=== PATIENT | male | born 1940 | race Caucasian/White ===

== ENCOUNTER 2016-05-23 16:41 | Emergency (ER) | payer BC, MEDICAID ==
[~2016-05-23] VITALS: Wt 113.6 kg
[2016-05-23] MEDS ORDERED: SOD CHLORIDE 0.9% 1,000 ML IV STA (19:43)
[2016-05-23 20:16] LABS: BASOPHILS % 0.4 % (0.0-2.0); EOSINOPHILS # 0.2 10^3/ul (0.0-0.5); EOSINOPHILS % 2.1 % (0.0-7.0); HEMATOCRIT 41.1 % (42.0-52.0); HEMOGLOBIN 13.7 g/dl (14.0-18.0); LYMPHOCYTES # 0.7 10^3/ul (0.8-2.9); LYMPHOCYTES % 7.9 % (15.0-51.0); MEAN CORPUSCULAR HEMOGLOBIN 28.6 pg (29.0-33.0); MEAN CORPUSCULAR HGB CONC 33.3 g/dl (32.0-37.0); MEAN CORPUSCULAR VOLUME 85.9 fl (82.0-101.0); MEAN PLATELET VOLUME 7.5 fl (7.4-10.4); MONOCYTE # 1.1 10^3/ul (0.3-0.9); MONOCYTES % 12.2 % (0.0-11.0); NEUTROPHIL # 6.7 10^3/ul (1.6-7.5); NEUTROPHILS % 77.4 % (39.0-77.0); PLATELET COUNT 264 10^3/UL (140-440); RED BLOOD COUNT 4.78 10^6/ul (4.70-6.10); RED CELL DISTRIBUTION WIDTH 16.2 % (11.5-14.5); UNCORRECTED WBC 8.7 10^3/ul (4.8-10.8); WHITE BLOOD COUNT 8.7 10^3/ul (4.8-10.8)
[2016-05-23 20:20] LABS: CONDITION 1; LH ANALYZER COMMENTS 1
[2016-05-23 20:21] LABS: ALBUMIN 4.5 g/dl (3.3-4.9); CHLORIDE 99 mmol/L (97-110)
[2016-05-23 20:22] LABS: INR 1.08; PARTIAL THROMBOPLASTIN TIME 28.3 Sec (25.0-35.0); POTASSIUM 4.1 mmol/L (3.5-5.1); PT RATIO 1.1; SODIUM 142 mmol/L (135-144)
[2016-05-23 20:24] LABS: ALBUMIN/GLOBULIN RATIO 1.36; ALKALINE PHOSPHATASE 96 IU/L (42-121); ANION GAP 18 (8-16); ASPARTATE AMINO TRANSFERASE 29 IU/L (15-46); BILIRUBIN,INDIRECT 0.6 mg/dl (0-1.1); BILIRUBIN,TOTAL 0.6 mg/dl (0.2-1.3); BLOOD UREA NITROGEN 6 mg/dl (7-20); CARBON DIOXIDE 29 mmol/L (21-31); CREATININE 0.74 mg/dl (0.61-1.24); TOTAL PROTEIN 7.8 g/dl (6.1-8.1)
[2016-05-23 20:25] LABS: ALANINE AMINOTRANSFERASE 35 IU/L (13-69); CALCIUM 10.1 mg/dl (8.4-10.2); CREATINE KINASE 50 IU/L (23-200); GLUCOSE 127 mg/dl (70-220)
[2016-05-23 20:34] LABS: B-TYPE NATRIURETIC PEPTIDE 799 PG/ML (0-125)
--- NOTE | 2016-05-23 20:42 | RADRPT ---
PROCEDURE: XR Chest. CLINICAL INDICATION: Chest pain. TECHNIQUE: Single frontal chest x-ray. COMPARISON: None. FINDINGS: There postop of changes lower cervical spine with an anterior fusion plate. There are multiple righ t-sided cervical inlet surgical clips, most commonly related to thyroid surgery. The heart is mildly enlarged. Pulmonary vessels are top normal caliber. There is minimal bibasilar atelectasis. There is no pleural effusion. There is no pneumothorax. The osseous structures are unremarkable. IMPRESSION: Cardiomegaly. Pulmonary vessels top normal caliber. Minimal bibasilar atelectasis. RPTAT: HMVK .Yoseph Pritchett MD, MD Date Time Electronically viewed and signed by .Yoseph Pritchett MD, on 05/23/2016 20:41 .K/
[2016-05-23 20:50] LABS: ADD UMIC YES; URINE BILIRUBIN (Dip) NEGATIVE (NEGATIVE); URINE BLOOD (Dip) NEGATIVE (NEGATIVE); URINE COLOR LT. YELLOW (YELLOW); URINE GLUCOSE (Dip) NEGATIVE (NEGATIVE); URINE KETONES (Dip) NEGATIVE (NEGATIVE); URINE LEUKOCYTE ESTERASE (Dip) NEGATIVE (NEGATIVE); URINE NITRITE (Dip) NEGATIVE (NEGATIVE); URINE TOTAL PROTEIN (Dip) 1+ (NEGATIVE); URINE UROBILINOGEN (Dip) 0.2 E.U./dL (0.1-1.0)
[2016-05-23 20:57] LABS: TROPONIN-I < 0.012 ng/ml (0.00-0.12)
[2016-05-23 21:04] LABS: SPERM,URINE MANY; URINE RBCS 0-2 /HPF (0)
--- NOTE | 2016-05-23 21:11 | ERD ---
ER Documentation Chief Complaint Date/Time DATE: 05/23/16 TIME: 21:09 Chief Complaint bib ems c/o sob, cough, bodyaches HPI This is a 75-year-old male was brought in by ambulance for a cough, body aches, generalized weakness and 1 day episode of diarrhea. This patient does state he is on Flagyl and ciprofloxacin and is being treated for diverticulitis at this time. He states that he was feeling generally weak and came to the ER for evaluation. He denies any active chest pain at this time. ROS All systems reviewed and are negative except as per history of present illness. Allergies Allergies: Coded Allergies: No Known Allergy (Unverified , 05/23/16) PMhx/Soc History of Surgery: Yes (CARDIAC SX, STENT PLACEMENT, APPY) Anesthesia Reaction: No Hx Neurological Disorder: No Hx Respiratory Disorders: No Hx Cardiac Disorders: Yes (HTN, HYPERLIPIDEMIA) Hx Psychiatric Problems: Yes (ANXIETY) Hx Miscellaneous Medical Probl: Yes (DM ) Hx Alcohol Use: No Hx Substance Use: No Hx Tobacco Use: No Smoking Status: Never smoker Physical Exam Vitals Vital Signs Date Time Temp Pulse Resp B/P Pulse Ox O2 Delivery O2 Flow Rate FiO2 05/23/16 19:45 99.5 85 24 169/86 97 Room Air 05/23/16 18:51 101 24 188/84 99 Room Air 05/23/16 17:08 99.9 94 20 206/91 98 Physical Exam INITIAL VITAL SIGNS: Reviewed by me GENERAL: The patient is well developed and appropriate for usual state of health in no apparent distress HEENT: Dry mucous membranes, pupils equal, round, and reactive to light. EOMI. There is no scleral icterus. NECK: C-spine is soft and supple, there is no meningismus. There is no cervical lymphadenopathy. LUNGS: Clear to auscultation bilaterally. There are no rales, wheezes or rhonchi. HEART: Regular rate and rhythm, no murmurs, clicks, rubs or gallops. ABDOMEN: Soft, non-tender, non-distended. There are bowel sounds in all four quadrants. No rebound or guarding. EXTREMITIES: There is no peripheral cyanosis or edema. No focal swelling or erythema. NEUROLOGICAL: The patient moves all four extremities with 5/5 strength. Cranial nerves II - XII are intact. Normal gait. Alert and oriented SKIN: There is no apparent rash or petechiae. HEME/LYMPHATIC: There is no evidence of excessive bruising or lymphedema. PSYCHIATRIC: The patient does not appear anxious or depressed. Result Diagram: 05/23/16193705/23/161937 Results 24 hrs Laboratory Tests Test 05/23/16 19:38 05/23/16 20:31 Activated Partial Thromboplast Time 28.3Sec Alanine Aminotransferase (ALT/SGPT) 35IU/L Albumin 4.5g/dl Albumin/Globulin Ratio 1.36 Alkaline Phosphatase 96IU/L Anion Gap 18 Aspartate Amino Transf (AST/SGOT) 29IU/L B-Type Natriuretic Peptide 799PG/ML Basophils # 0.010^3/ul Basophils % 0.4% Blood Morphology Comment Blood Urea Nitrogen 6mg/dl Calcium Level 10.1mg/dl Carbon Dioxide Level 29mmol/L Chloride Level 99mmol/L Creatine Kinase 50IU/L Creatinine 0.74mg/dl Direct Bilirubin 0.00mg/dl Eosinophils # 0.210^3/ul Eosinophils % 2.1% Globulin 3.30g/dl Glucose Level 127mg/dl Hematocrit 41.1% Hemoglobin 13.7g/dl INR International Normalized Ratio 1.08 Indirect Bilirubin 0.6mg/dl Lymphocytes # 0.710^3/ul Lymphocytes % 7.9% Mean Corpuscular Hemoglobin 28.6pg Mean Corpuscular Hemoglobin Concent 33.3g/dl Mean Corpuscular Volume 85.9fl Mean Platelet Volume 7.5fl Monocytes # 1.110^3/ul Monocytes % 12.2% Neutrophils # 6.710^3/ul Neutrophils % 77.4% Nucleated Red Blood Cells # 0.010^3/ul Nucleated Red Blood Cells % 0.0/100WBC Platelet Count 14549^3/UL Potassium Level 4.1mmol/L Prothrombin Time 14.0Sec Prothrombin Time Ratio 1.1 Red Blood Count 4.7810^6/ul Red Cell Distribution Width 16.2% Sodium Level 142mmol/L Total Bilirubin 0.6mg/dl Total Protein 7.8g/dl Troponin I < 0.012ng/ml White Blood Count 8.710^3/ul Urine Bilirubin NEGATIVE Urine Clarity CLEAR Urine Color LT. YELLOW Urine Glucose NEGATIVE% Urine Hemoglobin NEGATIVE Urine Ketones NEGATIVE Urine Leukocyte Esterase NEGATIVE Urine Microscopic RBC 0-2/HPF Urine Microscopic WBC 0-2/HPF Urine Nitrite NEGATIVE Urine Specific [place] 1.020 Urine Sperm MANY Urine Total Protein 1+ Urine Urobilinogen 0.2 E.U./dL Urine pH 7.5 Current Medications Medications (Trade) Dose Ordered Sig/Otto Route PRN Reason Start Time Stop Time Status Last Admin Dose Admin Sodium Chloride (NS) 1,000 ml @ 1,000 mls/hr Q1H STAT IV 05/23/16 19:43 05/23/16 20:42 DC 05/23/16 20:00 Procedures/MDM EKG: Rate/Rhythm: [Normal Sinus Rhythm] QRS, ST, T-waves: [No changes consistent w/ acute ischemia] Impression: [No evidence of ischemia or arrhythmia] Chest X-ray 1V Interpreted by me: Soft Tissue: No acute abnormalities Bones: No acute abnormalities Mediastinum/Cardiac Silhouette/Lungs: [No acute abnormalities] This 75-year-old male presents to the ER for evaluation of generalized weakness and body aches. This patient had lab work done including a troponin which is normal, EKG is nonischemic, chest x-ray shows mild pulmonary vascular congestion. There is no leukocytosis, electrolytes are within normal limits and he was given 1 L of fluid. When I reevaluated him he states is feeling much better at this time and will be discharged home with instructions to stay hydrated. I do feel that his symptoms could be due to mild dehydration. Departure Diagnosis: Primary Impression: Mild dehydration Additional Impressions: Normocytic anemia Generalized weakness Condition: Stable GARFIELD COPELAND DO May 23, 2016 21:11
[2016-05-23] MEDS ORDERED: CLOP75TA4 PO (21:13)
[2016-05-23] MEDS ORDERED: RANO500T2 PO (21:14)
[2016-05-23] MEDS ORDERED: LAMO100T PO (21:14)
[2016-05-23] MEDS ORDERED: AMLO-147 PO (21:15)
[2016-05-23] MEDS ORDERED: GABA-526 PO (21:17)
[2016-05-23] MEDS ORDERED: MTF1000T PO (21:18)
[2016-05-23] MEDS ORDERED: BUSP10TA2 PO (21:20)
[2016-05-23] MEDS ORDERED: ISOS60TA PO (21:21)
[2016-05-23] MEDS ORDERED: METO-407 PO (21:21)
[2016-05-23] MEDS ORDERED: ASPI325T4 PO (21:24)
[2016-05-23] MEDS ORDERED: HYDR25CA PO (21:25)
[2016-05-23] MEDS ORDERED: METO-448 PO (21:28)
[2016-05-23] MEDS ORDERED: ATOR40TA68 PO (21:29)
[2016-05-23 21:30] VITALS: BP 160/79; PULSE 80; RESP 24; TEMP 98.3
[2016-05-23] MEDS ORDERED: LISI20TA11 PO (21:31)
[2016-05-23] MEDS ORDERED: QUET200T23 PO (21:32)
[2016-05-23] MEDS ORDERED: BUPR1FIL5 SL (21:35)
[2016-05-23] MEDS ORDERED: NIT4 SL (21:35)
[2016-05-23] MEDS ORDERED: BUDE6HFA INHALATION (21:36)
[2016-05-23] MEDS ORDERED: ALBU2.5V3 NEB (21:37)
[2016-05-23] MEDS ORDERED: ALBU90AE INHALATION (21:39)
== END 2016-05-23 22:01 | disposition home or self-care (01) ==
LOC: E/R 16:41
DX: E86.0 Dehydration (principal); R53.1 Weakness; E11.9 Type 2 diabetes mellitus without complications; I10 Essential (primary) hypertension; D64.9 Anemia, unspecified; Z95.5 Presence of coronary angioplasty implant and graft
CPT/HCPCS: 36415; 71010; 80053; 81001; 82550; 82553; 83880; 84484; 85025; 85610; 85730; 93005; 99285; J7030; 81003

== ENCOUNTER 2017-08-13 22:16 | Emergency (ER) | END 2017-08-14 06:30 | disposition home or self-care (01) ==

== ENCOUNTER 2018-04-16 16:02 | Observation (INO) | END 2018-04-17 14:25 | disposition home or self-care (01) ==

== ENCOUNTER 2018-06-25 10:33 | Emergency (ER) | payer OTHER ==
[~2018-06-25] VITALS: Ht 182.9 cm; Wt 113.6 kg
[~2018-06-25 10:33] MED LIST: ALBU2.5V3 NEB; AMLO-147 PO; ATOR-2 PO; BUDE6HFA INHALATION; BUPR1FIL5 SL; BUSP15TA3 PO; CITA10TA5 PO; CLON-379 PO; CLOP75TA19 PO; GABA-526 PO; ISOS60TA PO; LAMO100T PO; METF500T24 PO; METO-407 PO; NITR0.4T39 SL; QUET200T PO
[2018-06-25 11:02] VITALS: Ht 182.9 cm; Wt 113.6 kg
--- NOTE | 2018-06-25 11:14 | ERD ---
ER Documentation Chief Complaint Chief Complaint sent from clinic for abnormal k+ level, no other complaints HPI This is a very pleasant 77-year-old male with a history of type 2 diabetes mellitus bipolar disorder coronary artery disease hypertension. He was diagnosed with diabetes at the age of 75. The patient is on metformin. The patient was sent to [facility] today from [facility] after he was seen and evaluated for routine checkup. The patient had ancillary laboratory work that had been performed in the office. The patient's BUN was 31 and creatinine was 1.35. The patient's potassium was 6.2 mmol/L. Again this was taken today at 10 AM, an hour prior to arrival. Therefore the patient was instructed to immediately come to the emergency department to be further evaluated. The patient states he has had no frequency urgency or dysuria. He denies any hematuria. He denies any flank pain. He states he is never had any history of hyperkalemia or renal failure. He has no chest pain. He has no shortness of breath. He has no myalgias and no recent fever shaking or chills. The patient also states that he has been undergoing a significant amount of stress as he is undergoing a grief reaction as he lost his of several years 1 week prior to arrival. He stated he has not been eating or drinking as much as he had a decrease in appetite. He feels very dehydrated. He however denies any suicidal homicidal thoughts or ideations. He has a 24-hour caregiver who l enrike with him and helps him to attend to his activities of daily living. ROS All systems reviewed and are negative except as per history of present illness. Medications Home Meds Reported Medications Metformin Hcl* (Metformin Hcl* ER) 1,000 Mg Tab.er.24, 1000 MG PO DAILY, #30 TAB 06/25/18 Hydroxyzine Pamoate* (Vistaril*) 25 Mg Capsule, 25 MG PO Q8, CAP 06/25/18 Budesonide-Formoterol Fumarate* (Symbicort*) 160-4.5 Hfa.aer.ad, 2 PUFF INHALATION BID, #1 EACH 06/25/18 Tiotropium [place]* (Spiriva*) 18 Mcg Cap.w.dev, 1 CAP INHALATION DAILY, #30 CAP 06/25/18 Ranolazine* (Ranexa*) 500 Mg Tab.sr.12h, 500 MG PO Q12, TAB 06/25/18 Albuterol Sulfate* (Proair HFA*) 8.5 Gm Hfa.aer.ad, 2 PUFF INH Q6H PRN for WHEEZING AND SOB, #1 INHALER 06/25/18 Lisinopril* (Lisinopril*) 20 Mg Tablet, 20 MG PO BID, #30 TAB 06/25/18 Gabapentin* (Gabapentin*) 400 Mg Capsule, 1200 MG PO QAM, #270 CAP 06/25/18 Clonidine Hcl* (Clonidine Hcl*) 0.2 Mg Tablet, 0.2 MG PO DAILY, TAB 06/25/18 Atorvastatin* (Atorvastatin*) 40 Mg Tablet, 40 MG PO QHS, #30 TAB 06/25/18 Spironolactone* (Aldactone*) 25 Mg Tablet, 25 MG PO DAILY, #30 TAB 06/25/18 Metformin Hcl* (Metformin Hcl*) 500 Mg Tablet, 500 MG PO BID, #60 TAB 08/13/17 Citalopram Hydrobromide* (Citalopram Hydrobromide*) 10 Mg Tablet, 10 MG PO QHS, #30 TAB 08/13/17 Buspirone Hcl* (Buspirone Hcl*) 15 Mg Tablet, 60 MG PO QAM, TAB 08/13/17 Albuterol Sulfate* (Albuterol Sulfate* Neb) 0.083%-3 Ml Neb, 2.5 MG NEB Q3H PRN for WHEEZING AND SOB, #30 VIAL 05/23/16 Nitroglycerin* (Nitrostat*) 0.4 Mg Tab.subl, 0.4 MG SL Q5MIN PRN for CHEST PAIN, BOTTLE 05/23/16 Buprenorphine Hcl-Naloxone Hcl (Suboxone SL) 4-1 Mg Film, 2 FILM SL DAILY, FILM 05/23/16 Quetiapine Fumarate* (Seroquel*) 200 Mg Tablet, 200 MG PO HS, #30 TAB 05/23/16 Metoprolol Tartrate* (Lopressor*) 100 Mg Tablet, 100 MG PO BID, #60 TAB 05/23/16 Isosorbide Mononitrate* (Isosorbide Mononitrate*) 60 Mg Tab.er.24h, 60 MG PO QAM, TAB 05/23/16 Amlodipine Besylate* (Amlodipine Besylate*) 10 Mg Tablet, 10 MG PO QAM, #30 TAB 05/23/16 Lamotrigine* (Lamotrigine*) 100 Mg Tablet, 100 MG PO BID, TAB 05/23/16 Discontinued Reported Medications Gabapentin* (Gabapentin*) 600 Mg Tablet, 600 MG PO TID, #90 TAB 08/13/17 Atorvastatin* (Atorvastatin*) 80 Mg Tablet, 80 MG PO QHS, #30 TAB 08/13/17 Clonidine Hcl* (Clonidine Hcl*) 0.1 Mg Tab, 0.1 MG PO DAILY PRN for HTN, TAB 08/13/17 Budesonide-Formoterol Fumarate* (Symbicort*) 160-4.5 Hfa.aer.ad, 2 PUFF INHALATION BID, #1 EACH 05/23/16 Clopidogrel Bisulfate* (Clopidogrel Bisulfate*) 75 Mg Tablet, 75 MG PO DAILY, #30 TAB 05/23/16 Allergies Allergies: Coded Allergies: No Known Allergy (Unverified , 08/13/17) PMhx/Soc History of Surgery: Yes (B knee sx, heart sx, B shoulder sx, Appendectomy,stent placement) Anesthesia Reaction: No Hx Neurological Disorder: No Hx Respiratory Disorders: No Hx Cardiac Disorders: Yes (HTN, HLD, ) Hx Psychiatric Problems: Yes (Anxiety) Hx Miscellaneous Medical Probl: No Hx Alcohol Use: No Hx Substance Use: No Hx Tobacco Use: No Physical Exam Vitals Vital Signs Date Temp Pulse Resp B/P (MAP) Pulse Ox O2 O2 Flow FiO2 Time Delivery Rate 06/25/18 65 20 99 21 13:19 06/25/18 65 20 139/68 99 Room Air 13:06 (91) 06/25/18 98.7 69 18 133/64 97 11:02 (87) Physical Exam Constitutional:Well-developed. Well-nourished. HEENT:Normocephalic. Atraumatic.Pupils were equal round reactive to light. Dry mucous membranes.No tonsillar exudates. Neck: No nuchal rigidity. No lymphadenopathy. No posterior cervical spine tenderness or step-offs. Respiratory: Not using accessory muscles of respiration.Lungs were clear to auscultation bilaterally. No rhonchi. No rales. No wheezing. Cardiovascular: Regular rate regular rhythm.No murmurs. No rubs were appreciated.S1, S2 normal. Distal pulses are palpable 2+ bilaterally. GI: Abdomen was obese exam is limited due to body habitus. Nontender. Non Distended. No pulsatile abdominal masses or bruits. No rebound. No guarding. Bowel sounds were present and normal. Muscle skeletal: Full range of motion of both the upper and lower extremities bilaterally.Normal muscle tone.No assymetrical calf tenderness or swelling. Skin: No petechia, no purpura. No lesions on the palms or the soles of the feet. No maculopapular rash. NEURO: Patient was alert, awake, orientated x3.No facial droop. Gait observed and normal with no ataxia.Speech had regular rate and rhythm. No focal neurological deficits. Result Diagram: 06/25/18 1117 06/25/18 1117 Results 24 hrs Laboratory Tests Test 06/25/18 11:17 White Blood Count 9.7 10^3/ul Red Blood Count 4.44 10^6/ul Hemoglobin 12.4 g/dl Hematocrit 39.2 % Mean Corpuscular Volume 88.3 fl Mean Corpuscular Hemoglobin 27.9 pg Mean Corpuscular Hemoglobin Concent 31.6 g/dl Red Cell Distribution Width 15.5 % Platelet Count 247 10^3/UL Mean Platelet Volume 9.6 fl Immature Granulocytes % 0.800 % Neutrophils % 65.8 % Lymphocytes % 15.8 % Monocytes % 12.1 % Eosinophils % 4.8 % Basophils % 0.7 % Nucleated Red Blood Cells % 0.0 /100WBC Immature Granulocytes # 0.080 10^3/ul Neutrophils # 6.4 10^3/ul Lymphocytes # 1.5 10^3/ul Monocytes # 1.2 10^3/ul Eosinophils # 0.5 10^3/ul Basophils # 0.1 10^3/ul Nucleated Red Blood Cells # 0.0 10^3/ul Prothrombin Time 12.7 Sec Prothrombin Time Ratio 1.0 INR International Normalized Ratio 0.94 Activated Partial Thromboplast Time 25.7 Sec Sodium Level 139 mmol/L Potassium Level 5.4 mmol/L Chloride Level 104 mmol/L Carbon Dioxide Level 22 mmol/L Anion Gap 13 Blood Urea Nitrogen 33 mg/dl Creatinine 1.56 mg/dl Est Glomerular Filtrat Rate mL/min mL/min Glucose Level 115 mg/dl Calcium Level 9.7 mg/dl Total Bilirubin 0.1 mg/dl Direct Bilirubin 0.00 mg/dl Indirect Bilirubin 0.1 mg/dl Aspartate Amino Transf (AST/SGOT) 24 IU/L Alanine Aminotransferase (ALT/SGPT) 24 IU/L Alkaline Phosphatase 77 IU/L Troponin I < 0.012 ng/ml Total Protein 7.3 g/dl Albumin 4.4 g/dl Globulin 2.90 g/dl Albumin/Globulin Ratio 1.51 Current Medications Medications Dose Sig/Otto Start Time Status Last (Trade) Ordered Route PRN Stop Time Admin Dose Reason Admin Sodium 30 gm ONCE STAT 06/25/18 DC 06/25/18 Polystyrene PO 12:04 12:47 Sulfonate 06/25/18 12:23 (Kayexalate) Albuterol 15 mg ONCE STAT 06/25/18 DC 06/25/18 (Proventil INH 12:04 13:19 0.5% (Neb)) 06/25/18 12:23 Sodium 50 ml ONCE STAT 06/25/18 DC 06/25/18 Bicarbonate IV 12:04 12:47 (Na Bicarb 06/25/18 12:23 8.4% Syg) Calcium 1,000 mg ONCE STAT 06/25/18 DC 06/25/18 Chloride IV 12:04 12:47 (Ca Chloride 06/25/18 12:23 10% Syg) Lorazepam 0.5 mg ONCE ONCE 06/25/18 DC (Ativan) IV 13:00 06/25/18 13:01 Sodium 1,000 ml @ Q1H STAT 06/25/18 06/25/18 Chloride 1,000 mls/hr IV 12:40 12:47 06/25/18 13:39 Procedures/MDM This is a very pleasant 77-year-old male that presents to the emergency department with abnormal ancillary laboratory work that had been performed prior to arrival. The patient was hyperkalemic. Ancillary laboratory work was redrawn in the emergency department the patient was placed on a shelter monitor continuous pulse oximetry and IV access was assessed by nursing staff. The patient also showed signs of clinical dehydration. The patient's BUN and creatinine were elevated however this appeared to be prerenal secondary to dehydration. The patient received a liter bolus of normal saline. The patient's potassium was slightly elevated at 5.4. I had a lengthy discussion with the patient and I stated I felt this is more likely again prerenal versus renal failure. The patient was able to make urine. He denied any flank pain. I reviewed the ancillary laboratory work taken on April 17, 2018 roughly 2 months prior to arrival. At that time the patient had normal kidney function with a BUN of 20 and a creatinine of 1.0 I obtained an ultrasound of the patient's kidneys was reviewed by the radiologist and indicated the following: Left nephrolithiasis with mild left-sided hydronephrosis. Mild thinning of the cortex of the right kidney. 12 Lead EKG tracing ordered and reviewed by myself showed: Normal sinus rhythm of 67 bpm and no arrhythmia. GA interval prolonged at 228 ms with a first-degree AV block. No peak T waves. QRS duration normal. No ST segment elevation No ST segment depression. No changes consistent with acute ischemia. The patient states he has had a known nephrolithiasis on the left for several years. He was seen by urologist and stated there was no intervention required at this time and he is also flank pain free. He had no hematuria. The patient was treated for mild hyperkalemia given nebulizer treatment of albuterol. The patient was also given an amp of bicarbonate amp of calcium chloride. I had a lengthy discussion with both the patient and his caregiver. He stated he would prefer to be discharged home. He has very good outpatient follow-up. Again the patient was experiencing acute grief reaction but was denying Ativan or social work consult. The patient was discharged home in fair condition. They were instructed to return to the emergency department at any time if there was any worsening of their condition. The patient stated they would follow up with their PCP in the next 24-48 hours to initiate a suitable medication regimen under the care of their PCP as well as to allow their PCP to monitor any drug reactions. The patient was discharged home with prescriptions after they gave informed consent to the new medication. They were also fully informed by myself on the adverse effects and adverse drug interactions in order to provide adequate safeguards to prevent possible adverse reactions to medications. Departure Diagnosis: Primary Impression: Encounter for laboratory test Additional Impressions: Hyperkalemia Acute prerenal azotemia Condition: FERDINAND Rapp MD Jun 25, 2018 11:14
[2018-06-25] MEDS ORDERED: NA BICARBONATE 8.4% 50 ML SYG IV STA (12:04)
[2018-06-25] MEDS ORDERED: NA POLYST SULFON 15 GM/60 ML BTL PO STA (12:04)
[2018-06-25] MEDS ORDERED: ALBUTEROL 0.5% (NEB) 2.5 MG/0.5 ML AMP INH STA (12:04)
[2018-06-25] MEDS ORDERED: CA CHLORIDE 10% 10 ML SYRINGE IV STA (12:04)
[2018-06-25] MEDS ORDERED: SPIR25TA PO (12:36)
[2018-06-25] MEDS ORDERED: ATOR40TA68 PO (12:36)
[2018-06-25] MEDS ORDERED: CLON0.2T5 PO (12:38)
[2018-06-25] MEDS ORDERED: SOD CHLORIDE 0.9% 1,000 ML IV STA (12:40)
[2018-06-25] MEDS ORDERED: GABA400C14 PO (12:40)
[2018-06-25] MEDS ORDERED: ALBU8.5H8 INH (12:41)
[2018-06-25] MEDS ORDERED: LISI-471 PO (12:41)
[2018-06-25] MEDS ORDERED: RANO500T2 PO (12:42)
[2018-06-25] MEDS ORDERED: TIOT18CA INHALATION (12:42)
[2018-06-25] MEDS ORDERED: BUDE6HFA INHALATION (12:42)
[2018-06-25] MEDS ORDERED: METF-406 PO (12:43)
[2018-06-25] MEDS ORDERED: HYDR25CA PO (12:43)
[2018-06-25] MEDS ORDERED: LORAZEPAM 2 MG INJ IV ONE (13:00)
[2018-06-25 14:45] VITALS: BP 124/71; PULSE 68; RESP 20
== END 2018-06-25 14:45 | disposition home or self-care (01) ==
LOC: E/R 10:33
DX: E87.5 Hyperkalemia (principal); I10 Essential (primary) hypertension; E11.9 Type 2 diabetes mellitus without complications; I25.10 Atherosclerotic heart disease of native coronary artery without angina pectoris; Z79.84 Long term (current) use of oral hypoglycemic drugs; Z79.01 Long term (current) use of anticoagulants
CPT/HCPCS: 76775; 80053; 84484; 85025; 85610; 85730; 93005; 94664; 96374; 96375; 99285; J7030; J2060

== ENCOUNTER 2018-10-31 09:36 | Emergency (ER) | payer OTHER ==
[~2018-10-31] VITALS: Ht 185.4 cm; Wt 113.6 kg
[~2018-10-31 09:36] MED LIST changes: +ALBU8.5H8 INH; -ATOR-2 PO; +ATOR40TA68 PO; -CLON-379 PO; +CLON0.2T5 PO; -CLOP75TA19 PO; -GABA-526 PO; +GABA400C14 PO; +HYDR25CA PO; +LISI-471 PO; +METF-406 PO; +RANO500T2 PO; +SPIR25TA PO; +TIOT18CA INHALATION
[2018-10-31 09:45] VITALS: Ht 185.4 cm; Wt 113.6 kg
[2018-10-31] MEDS ORDERED: ALBU2.5V3 NEB (11:30)
[2018-10-31] MEDS ORDERED: AMLO-147 PO (11:31)
[2018-10-31] MEDS ORDERED: ATOR-2 PO (11:31)
[2018-10-31] MEDS ORDERED: BUPR2TAB SL (11:33)
[2018-10-31] MEDS ORDERED: BUSP15TA3 PO (11:34)
[2018-10-31] MEDS ORDERED: CITA10TA10 PO (11:35)
[2018-10-31] MEDS ORDERED: GABA-526 PO (11:35)
[2018-10-31] MEDS ORDERED: CLON0.2T5 PO (11:35)
[2018-10-31] MEDS ORDERED: ISOS60TA PO (11:36)
[2018-10-31] MEDS ORDERED: LAMO100T PO (11:37)
[2018-10-31] MEDS ORDERED: METF500T24 PO (11:38)
[2018-10-31] MEDS ORDERED: METO-407 PO (11:38)
[2018-10-31] MEDS ORDERED: LISI-471 PO (11:38)
[2018-10-31] MEDS ORDERED: QUET100T32 PO (11:39)
[2018-10-31] MEDS ORDERED: NITR0.4T39 SL (11:39)
[2018-10-31] MEDS ORDERED: SPIR25TA PO (11:40)
[2018-10-31 12:02] VITALS: BP 122/70; PULSE 57; RESP 16
--- NOTE | 2018-10-31 12:24 | ERD ---
ER Documentation Chief Complaint Chief Complaint REFERRED BY PCP DUE TO ELEVATED POTASSIUM HPI This is a 78-year-old male with a past medical history of hypertension, hyperlipidemia, diabetes, CHF who is presenting for a transient episode of generalized fatigue. The patient reports that he saw his PCP recently who noted that the patient's potassium was slightly elevated at 5.6. The patient's primary physician told him to come to the emergency department if he feels bad to have his potassium checked. The patient reports that he felt very weak this morning and could not get out of bed. At that time, he called an ambulance to be evaluated in the ER. The patient reports that he continues to feel generally fatigued and weak, but the episode from this morning has resolved. The patient is able to move and get up. The patient does note that he recently lost his sister and his of 50 years. He has been more depressed than is typical. He does endorse not eating or drinking very well of late. The patient denies feeling sick recently. The patient denies fever or chills. The patient has had no headache or vision changes. The patient does not endorse neck or back pain. The patient denies lightheadedness or dizziness. The patient has had no chest pain or trouble breathing. The patient denies nausea or vomiti ng. The patient denies abdominal pain. The patient denies changes to bowel movements or urination. The patient has had no focal deficits. The patient has had no weakness or numbness or tingling to the face or extremities. ROS All systems reviewed and are negative except as per history of present illness. Medications Home Meds Reported Medications Spironolactone* (Aldactone*) 25 Mg Tablet, 25 MG PO BID, #60 TAB 10/31/18 Quetiapine Fumarate* (Quetiapine Fumarate*) 100 Mg Tablet, 150 MG PO HS, TAB 10/31/18 Nitroglycerin* (Nitrostat*) 0.4 Mg Tab.subl, 0.4 MG SL Q5MIN PRN for CHEST PAIN, BOTTLE 10/31/18 Metoprolol Tartrate* (Lopressor*) 100 Mg Tablet, 100 MG PO BID, #60 TAB 10/31/18 Metformin Hcl* (Metformin Hcl*) 500 Mg Tablet, 500 MG PO WITH BREAKFAST DINNE, #60 TAB 10/31/18 Lisinopril* (Lisinopril*) 20 Mg Tablet, 20 MG PO BID, #30 TAB 10/31/18 Lamotrigine* (Lamotrigine*) 100 Mg Tablet, 100 MG PO BID, TAB 10/31/18 Isosorbide Mononitrate* (Isosorbide Mononitrate*) 60 Mg Tab.er.24h, 60 MG PO QAM, TAB 10/31/18 Gabapentin* (Gabapentin*) 600 Mg Tablet, 600 MG PO BID, #60 TAB 10/31/18 Clonidine Hcl* (Clonidine Hcl*) 0.2 Mg Tablet, 0.2 MG PO BID PRN for BLOOD PRESSURE SUPPORT, TAB 10/31/18 Citalopram Hydrobromide* (Celexa*) 10 Mg Tablet, 10 MG PO DAILY, #30 TAB 10/31/18 Buspirone Hcl* (Buspirone Hcl*) 15 Mg Tablet, 30 MG PO BID, TAB 10/31/18 Buprenorphine Hcl (BUPRENORPHINE HCL) 2 Mg Tab.subl, 2 MG SL BID, TAB.SL 10/31/18 Atorvastatin* (Atorvastatin*) 80 Mg Tablet, 80 MG PO QHS, #30 TAB 10/31/18 Amlodipine Besylate* (Amlodipine Besylate*) 10 Mg Tablet, 10 MG PO DAILY, #30 TAB 10/31/18 Albuterol Sulfate* (Albuterol Sulfate* Neb) 0.083%-3 Ml Neb, 2.5 MG NEB Q3H PRN for WHEEZING AND SOB, #30 VIAL 10/31/18 Budesonide-Formoterol Fumarate* (Symbicort*) 160-4.5 Hfa.aer.ad, 2 PUFF INHALATION BID, #1 EACH 06/25/18 Tiotropium [place]* (Spiriva*) 18 Mcg Cap.w.dev, 1 CAP INHALATION DAILY, #30 CAP 06/25/18 Albuterol Sulfate* (Proair HFA*) 8.5 Gm Hfa.aer.ad, 2 PUFF INH Q6H PRN for WHEEZING AND SOB, #1 INHALER 06/25/18 Discontinued Reported Medications Metformin Hcl* (Metformin Hcl* ER) 1,000 Mg Tab.er.24, 1000 MG PO DAILY, #30 TAB 06/25/18 Hydroxyzine Pamoate* (Vistaril*) 25 Mg Capsule, 25 MG PO Q8, CAP 06/25/18 Ranolazine* (Ranexa*) 500 Mg Tab.sr.12h, 500 MG PO Q12, TAB 06/25/18 Lisinopril* (Lisinopril*) 20 Mg Tablet, 20 MG PO BID, #30 TAB 06/25/18 Gabapentin* (Gabapentin*) 400 Mg Capsule, 1200 MG PO QAM, #270 CAP 06/25/18 Clonidine Hcl* (Clonidine Hcl*) 0.2 Mg Tablet, 0.2 MG PO DAILY, TAB 06/25/18 Atorvastatin* (Atorvastatin*) 40 Mg Tablet, 40 MG PO QHS, #30 TAB 06/25/18 Spironolactone* (Aldactone*) 25 Mg Tablet, 25 MG PO DAILY, #30 TAB 06/25/18 Metformin Hcl* (Metformin Hcl*) 500 Mg Tablet, 500 MG PO BID, #60 TAB 08/13/17 Citalopram Hydrobromide* (Citalopram Hydrobromide*) 10 Mg Tablet, 10 MG PO QHS, #30 TAB 08/13/17 Buspirone Hcl* (Buspirone Hcl*) 15 Mg Tablet, 60 MG PO QAM, TAB 08/13/17 Albuterol Sulfate* (Albuterol Sulfate* Neb) 0.083%-3 Ml Neb, 2.5 MG NEB Q3H PRN for WHEEZING AND SOB, #30 VIAL 05/23/16 Nitroglycerin* (Nitrostat*) 0.4 Mg Tab.subl, 0.4 MG SL Q5MIN PRN for CHEST PAIN, BOTTLE 05/23/16 Buprenorphine Hcl-Naloxone Hcl (Suboxone SL) 4-1 Mg Film, 2 FILM SL DAILY, FILM 05/23/16 Quetiapine Fumarate* (Seroquel*) 200 Mg Tablet, 200 MG PO HS, #30 TAB 05/23/16 Metoprolol Tartrate* (Lopressor*) 100 Mg Tablet, 100 MG PO BID, #60 TAB 05/23/16 Isosorbide Mononitrate* (Isosorbide Mononitrate*) 60 Mg Tab.er.24h, 60 MG PO QAM, TAB 05/23/16 Amlodipine Besylate* (Amlodipine Besylate*) 10 Mg Tablet, 10 MG PO QAM, #30 TAB 05/23/16 Lamotrigine* (Lamotrigine*) 100 Mg Tablet, 100 MG PO BID, TAB 05/23/16 Allergies Allergies: Coded Allergies: No Known Allergy (Unverified , 10/31/18) PMhx/Soc Anesthesia Reaction: No Hx Neurological Disorder: Yes (Neuropathy) Hx Respiratory Disorders: Yes (COPD) Hx Cardiac Disorders: Yes (Hypertension, hyperlipidemia, diabetes, CHF) Hx Psychiatric Problems: Yes (Anxiety, depression, bereavement from recently losing his ) Hx Miscellaneous Medical Probl: No Hx Alcohol Use: No Hx Substance Use: No Hx Tobacco Use: Yes Smoking Status: Former smoker FmHx Family History: No diabetes Physical Exam Vitals Vital Signs Date Temp Pulse Resp B/P (MAP) Pulse Ox O2 O2 Flow FiO2 Time Delivery Rate 10/31/18 98.4 57 16 122/70 100 Room Air 12:02 (87) 10/31/18 98.1 59 16 105/64 98 09:45 (78) Physical Exam Const: No apparent distress, well-developed, well-nourished Head: Normocephalic, Atraumatic Eyes: Normal Conjunctiva. Extraocular movements grossly intact. ENT: Normal External Ears, Nose. Dry mucous membranes. Neck: Full range of motion. No meningismus. Resp: Clear to auscultation bilaterally, No wheezes, rales or rhonchi Cardio: Regular rate and rhythm. No murmurs, rubs or gallops Abd: Soft, non tender, non distended. Normal bowel sounds Skin: No petechiae or rashes Back: No midline tenderness. No CVA tenderness Ext: No cyanosis, or edema Neur: Awake and alert, oriented 4. Cranial nerves intact. No facial droop. Normal strength, sensation and coordination. Psych: Normal Mood and Affect Result Diagram: 10/31/18 0944 10/31/18 0944 Results 24 hrs Laboratory Tests Test 10/31/18 09:44 White Blood Count 9.8 10^3/ul Red Blood Count 4.41 10^6/ul Hemoglobin 12.8 g/dl Hematocrit 39.0 % Mean Corpuscular Volume 88.4 fl Mean Corpuscular Hemoglobin 29.0 pg Mean Corpuscular Hemoglobin Concent 32.8 g/dl Red Cell Distribution Width 13.6 % Platelet Count 260 10^3/UL Mean Platelet Volume 10.0 fl Immature Granulocytes % 0.400 % Neutrophils % 66.4 % Lymphocytes % 16.3 % Monocytes % 12.1 % Eosinophils % 4.2 % Basophils % 0.6 % Nucleated Red Blood Cells % 0.0 /100WBC Immature Granulocytes # 0.040 10^3/ul Neutrophils # 6.5 10^3/ul Lymphocytes # 1.6 10^3/ul Monocytes # 1.2 10^3/ul Eosinophils # 0.4 10^3/ul Basophils # 0.1 10^3/ul Nucleated Red Blood Cells # 0.0 10^3/ul Sodium Level 137 mmol/L Potassium Level 5.0 mmol/L Chloride Level 103 mmol/L Carbon Dioxide Level 24 mmol/L Anion Gap 10 Blood Urea Nitrogen 15 mg/dl Creatinine 1.10 mg/dl Est Glomerular Filtrat Rate mL/min mL/min Glucose Level 126 mg/dl Calcium Level 9.8 mg/dl Troponin I < 0.012 ng/ml Procedures/MDM MDM The patient's presentation warrants further investigation. Previous medical records, if available, were reviewed. LABS The patient's laboratory testing was obtained and reviewed. No emergent treatment was required unless described below. CBC: No E/o systemic infection or thrombocytopenia. Mild normocytic anemia, not emergent. Chemistry: No E/o severe acidosis or alkalosis or renal failure or diabetic ketoacidosis Troponin: No E/o acute ischemia EKG EKG read by me: Rate/Rhythm: Sinus bradycardia at a rate of 58 bpm Intervals: Normal QRS and QTc. Prolonged SC interval indicating a first- degree AV block. [place]: Normal Impression: Q waves in the inferior leads indicating old inferior ischemia. No ST or T wave changes concerning for acute ischemia or STEMI. Mild sinus bradycardia. TREATMENT/DISPOSITION The patient presents for exacerbated chronic fatigue. The patient does have symptoms concerning for significant bereavement. The patient does not have evidence of wasting, but he does endorse not eating or drinking well, which could lead to increased fatigue and weakness. The patient does not have any focal deficits. The neurologic exam is reassuring. I have decreased suspicion for cerebral ischemia. There was no trauma or injury. There is no personal or family history of cerebral aneurysm. I have decreased suspicion for SAH or other ICH. I have low suspicion for temporal arteritis, cavernous venous thrombosis, subdural hematoma, epidural hematoma, meningitis. The patient has a reassuring physical exam. The patient is not clinically orthostatic. The patient is not dizzy. I have decreased suspicion for vertigo. The patient has no signs of emergent or symptomatic anemia. The patient does not have any emergent electrolyte or metabolic emergencies. The patient's potassium is stable and within normal limits. I have decrease suspicion for a thyroid disorder. The patient is not toxic appearing. I have decreased suspicion for an infectious etiology of symptoms. The patient's EKG and troponin are reassuring. I have low suspicion for acute coronary syndrome. I do not see evidence of any emergent cardiac arrhythmia, which includes but is not limited to heart block, Brugada syndrome or WPW. The patient does have mild bradycardia, but this is stable. He has no hypotension. I do not suspect symptomatic bradycardia as the etiology of his symptoms. The patient has no heart murmurs or rales. There is no evidence of cardiomegaly on exam or chest xray. I have low suspicion for hypertrophic cardiomyopathy. I do not see evidence of CHF. The patient does not endorse any chest or pleuritic pain. The history is negative for bleeding or clotting disorders. The patient has not been involved in any recent prolonged trips or surgeries or hospitalizations. The patient has no calf tenderness or swelling. I have decr eased suspicion for PE as the etiology of symptoms. The [place] Syncope Rule was applied and the patient was found to be low risk for a serious outcome. The patient was offered normal saline to help with hydration, but he declined. He preferred oral hydration at home. DISCHARGE Upon reevaluation of the patient, symptoms have improved. No emergent diagnoses were identified. At this time, I feel that the patient stable for discharge. The patient was instructed to follow-up with a primary care physician in 1-3 days. The patient will be given strict precautions with which to return to the emergency department. Prescriptions: None The patient's blood pressure was elevated at greater than 120/80 while in the emergency department. The patient was otherwise stable with no evidence of hypertensive urgency or emergency. The patient does not require admission for blood pressure control. I have discussed with the patient the risks of hypertension. I have instructed the patient to return to the ER for any new or worsening symptoms including chest pain, shortness of breath, headache, blurred vision, confusion, nausea, vomiting or LOC. I have advised the patient to follow up with the primary care physician for outpatient monitoring and treatment for hypertension in 1-3 days. Disclaimer: Inadvertent spelling and grammatical errors are likely due to EHR/dictation software use and do not reflect on the overall quality of patient care. Note that the electronic time recorded on this note does not necessarily reflect the actual time of the patient encounter. Departure Diagnosis: Primary Impression: Fatigue Fatigue type: chronic, unspecified Qualified Codes: R53.82 - Chronic fatigue, unspecified Additional Impressions: Generalized weakness Normocytic anemia Bradycardia Bereavement Poor appetite Condition: Stable Patient Instructions: Anemia, Bradycardia, Grief and Loss, Weakness, Unk Cause Additional Instructions: Thank you for for coming to [facility] for your care today. Please ask your nurse or provider if you have questions about your care today and do not leave until all your questions have been answered. Please use any medications given as directed and follow-up with your doctor (or the doctor you were referred to) in the next 1-3 days. If you do not have a primary care doctor you may follow up at the [facility] or [facility] (listed below). You may also use motrin and tylenol as needed for fever and/or pain unless instru cted otherwise by your provider or nurse. Indications for more urgent follow-up have been discussed, but you may return to the Emergency Department at ANY time for any worrisome or worsening symptoms. If you have abdominal pain, please know that no test or exam you received is perfect and you should follow up within 8 hours for continued pain. If you had any imaging studies today, such as an X-Ray or CT Scan, these studies will be reviewed later by a radiologist. You will be called if there are important findings that were not identified today, so make sure the contact information you provided at registration is correct. If you received any narcotic pain control medicine today, such as Vicodin, Morphine or Dilaudid, your coordination and judgment may be affected for a number of hours. Please do not drive or operate heavy machinery, and you may want someone to assist you at home. If you were given a prescription for narcotic medication, be aware that it is very addictive- use sparingly and only if necessary. PLEASE SEEK FURTHER EVALUATION AND MANAGEMENT AT YOUR DOCTORS OFFICE WITHIN THE NEXT 1-3 DAYS. IT IS YOUR RESPONSIBILITY TO MAKE AN APPOINTMENT FOR FOLOW-UP CARE. IF YOU HAVE A PRIMARY DOCTOR, PLEASE CALL THEIR OFFICE TO SCHEDULE AN APPOINTMENT FOR FOLLOW UP. IF YOU DO NOT HAVE A PRIMARY DOCTOR YOU CAN CALL OUR PHYSICIAN REFERRAL HOTLINE AT IF YOU CAN NOT AFFORD TO SEE A PHYSICIAN YOU CAN CHOSE FROM THE FOLLOWING [facility] CLINICS: [facility] [id number] [facility] [address] [facility] [facility] [address] [facility] [address] [facility] [address] [facility]. [facility]. [address] LAKEISHA CHANEL MD Oct 31, 2018 12:17
== END 2018-10-31 12:20 | disposition home or self-care (01) ==
LOC: E/R 09:36
DX: D64.9 Anemia, unspecified (principal); I11.0 Hypertensive heart disease with heart failure; I50.9 Heart failure, unspecified; E11.9 Type 2 diabetes mellitus without complications; J44.9 Chronic obstructive pulmonary disease, unspecified; R63.0 Anorexia; Z63.4 Disappearance and death of family member; Z79.84 Long term (current) use of oral hypoglycemic drugs; Z87.891 Personal history of nicotine dependence
CPT/HCPCS: 36415; 80048; 84484; 85025; 99283

== ENCOUNTER 2018-12-30 02:58 | Emergency (ER) | payer OTHER ==
[~2018-12-30] VITALS: Ht 182.9 cm; Wt 114.6 kg
[~2018-12-30 02:58] MED LIST changes: +ATOR-2 PO; -ATOR40TA68 PO; +AZIT250T PO; -BUPR1FIL5 SL; +BUPR2TAB SL; +CITA10TA10 PO; -CITA10TA5 PO; +GABA-526 PO; -GABA400C14 PO; -HYDR25CA PO; -METF-406 PO; +QUET100T32 PO; -QUET200T PO; -RANO500T2 PO
[2018-12-30 03:06] VITALS: Ht 182.9 cm; Wt 114.6 kg
[2018-12-30] MEDS ORDERED: METHYLPREDNISOLONE 125 MG INJ IV STA (03:07)
[2018-12-30] MEDS ORDERED: IPRATROPIUM (NEB) 0.5 MG/2.5 ML AMP INH STA (03:07)
[2018-12-30] MEDS ORDERED: ALBUTEROL 0.5% (NEB) 2.5 MG/0.5 ML AMP INH STA (03:07)
[2018-12-30 04:30] VITALS: BP 127/82; PULSE 78; RESP 22
[2018-12-30] MEDS ORDERED: ONDANSETRON 4 MG INJ IV PRN ×2 (04:30)
[2018-12-30] MEDS ORDERED: DOCUSATE SODIUM 100 MG CAP PO PRN (04:30)
[2018-12-30] MEDS ORDERED: ACETAMINOPHEN 325 MG TAB PO PRN ×2 (04:30)
[2018-12-30] MEDS ORDERED: NACL 0.9% 3 ML SYG IV SCH (04:30)
[2018-12-30] MEDS ORDERED: BISACODYL (EC) 5 MG TAB PO PRN (04:30)
[2018-12-30] MEDS ORDERED: ALBUTEROL/IPRATROPIUM (NEB) 3 ML AMP HHN SCH (05:00)
[2018-12-30] MEDS ORDERED: PANTOPRAZOLE (EC) 40 MG TAB PO SCH (06:00)
[2018-12-30] MEDS ORDERED: ALBUTEROL HFA 8 GM INHALER INH PRN (06:00)
[2018-12-30] MEDS ORDERED: LEVOFLOXACIN 750MG/D5W (PMX) 150 ML IVPB ONE (06:00)
[2018-12-30] MEDS ORDERED: HEPARIN 5,000 UNIT/1 ML VIAL SC SCH (06:00)
[2018-12-30] MEDS ORDERED: ALBUTEROL 0.083% (NEB) 2.5 MG/3 ML AMP NEB PRN (06:00)
[2018-12-30] MEDS ORDERED: METHYLPREDNISOLONE 125 MG INJ IV SCH (06:00)
[2018-12-30] MEDS ORDERED: AMLODIPINE 10 MG TAB PO SCH (09:00)
[2018-12-30] MEDS ORDERED: LISINOPRIL 20 MG TAB PO SCH (09:00)
[2018-12-30] MEDS ORDERED: GABAPENTIN 300 MG CAP PO SCH (09:00)
[2018-12-30] MEDS ORDERED: BUSPIRONE 5 MG TAB PO SCH (09:00)
[2018-12-30] MEDS ORDERED: CITALOPRAM 20 MG TAB PO SCH (09:00)
[2018-12-30] MEDS ORDERED: ISOSORBIDE MONONITRATE(SR)60 MG TAB PO SCH (09:00)
[2018-12-30] MEDS ORDERED: LAMOTRIGINE 100 MG TAB PO SCH (09:00)
[2018-12-30] MEDS ORDERED: SPIRONOLACTONE 25 MG TAB PO SCH (09:00)
[2018-12-30] MEDS ORDERED: QUETIAPINE 100 MG TAB PO SCH (21:00)
[2018-12-30] MEDS ORDERED: ATORVASTATIN 80 MG TAB PO SCH (21:00)
== END 2018-12-30 06:12 | disposition left against medical advice (07) ==
LOC: E/R 02:58 → CANBEDREQ 14:10
DX: J44.1 Chronic obstructive pulmonary disease with (acute) exacerbation (principal); I11.0 Hypertensive heart disease with heart failure; I50.9 Heart failure, unspecified; E11.9 Type 2 diabetes mellitus without complications; Z79.84 Long term (current) use of oral hypoglycemic drugs
CPT/HCPCS: 36415; 36600; 71045; 80053; 82803; 83605; 83880; 84484; 85025; 85610; 85730; 93005; 94644; 96374; 99285; J2930